=== PATIENT | male | born 1985 ===

== ENCOUNTER 2016-12-24 17:59 | Emergency (ER) | payer OTHER ==
[2016-12-24 18:11] VITALS: BP 118/76
--- NOTE | 2016-12-24 20:21 | ED HAND/WRIST INJURY COMPLAINT ---
History of Present Illness General Chief Complaint: Laceration Procedure Stated Complaint: FINGER LAC Source: patient Exam Limitations: no limitations Vital Signs & Intake/Output Vital Signs & Intake/Output Vital Signs Date Time Temp Pulse Resp B/P Pulse O2 O2 Flow FiO2 Ox Delivery Rate 12/24 2029 Room Air 12/24 1811 98.2 70 20 118/76 99 Allergies Coded Allergies: No Known Allergies (12/24/16) Triage Note: SEE NOTE UNKNOWN LAST TETANUS PER PT CUT FINGER AT WORK, CUT L THUMB ON SLICER. Triage Nurses Notes Reviewed? yes HPI: 31-year-old male with left thumb laceration at the distal phalanx ulnar aspect that occurred while at work. 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 Occurred prior to arrival, bleeding has been constant since. Mild sharp pain. He does not recall his last shot. No other injuries. (JARAD MANRIQUEZ) Past History Travel History Traveled to [place] past 21 day No Medical History Any Pertinent Medical History? none Neurological: NONE EENT: NONE Cardiovascular: NONE Respiratory: NONE Gastrointestinal: NONE Hepatic: NONE Renal: NONE Musculoskeletal: NONE Psychiatric: NONE Endocrine: NONE Tetanus Status: not up to date Surgical History Surgical History: non-contributory Psychosocial History What is your primary language Macedonian Tobacco Use: Current Daily Use Daily Tobacco Use Amount/Type: => 5 Cigarettes daily Family History Hx Contributory? No (JARAD MANRIQUEZ) Review of Systems Review of Systems Constitutional: Reports: see HPI. EENTM: Reports: no symptoms. Respiratory: Reports: no symptoms. Cardiovascular: Reports: no symptoms. GI: Reports: no symptoms. Genitourinary: Reports: no symptoms. Musculoskeletal: Reports: no symptoms. Skin: Reports: no symptoms. Neurological/Psychological: Reports: no symptoms. Hematologic/Endocrine: Reports: no symptoms. Immunologic/Allergic: Reports: no symptoms. All Other Systems: Reviewed and Negative (JARAD MANRIQUEZ) Physical Exam Physical Exam Hand Left: evidence of injury, 1st finger Hand Right: normal inspection Comments: Well-developed well-nourished no apparent distress. HEENT: Atraumatic, extraocular motion intact Neck: Supple, no lymphadenopathy Back: Nontender Respiratory: No respiratory distress Extremities: No edema, full range of motion Neuro: Alert and oriented x3 Psych: Mood affect normal, normal memory normal judgment. Skin: Warm and dry, no rash on exposed skin Left hand thumb distal phalanx ulnar aspect with a 1 cm laceration with mild active bleeding. Neurovascularly intact, capillary refill intact. Full range of motion. (JARAD MANRIQUEZ) Progress Differential Diagnosis: abscess, fracture, foreign body, tendon laceration Plan of Care: After verbal consent was obtained the laceration area was anesthetized with lidocaine 1 mL left thumb It was prepped and draped in a sterile fashion with Betadine. The wound was copiously irrigated with normal saline. The wound was inspected and no foreign bodies or tendon lacerations were noted on exam and there is no functional deficit. There is no arterial bleeding. 6 -0 nylon simple interrupted sutures were placed 3 Sutures in total. Bacitracin and sterile dressing was applied. Distally the neurovascular status was intact postprocedure. The patient tolerated the procedure well without complications. Infection and risk of foreign body or tendon laceration was discussed with patient. Follow-up instructions and wound care was discussed. Tetanus vaccine was given (JARAD MANRIQUEZ) Departure Departure Disposition: HOME OR SELF CARE Condition: Stable Clinical Impression Primary Impression: Finger laceration Qualifiers: Encounter type: initial encounter Qualified Code: S61.219A - Laceration without foreign body of unspecified finger without damage to nail, initial encounter Referrals: PATIENT HAS NO PRIMARY CARE DR (PCP/Family) Additional Instructions: Follow-up in 7-10 days either with your doctor or return to the emergency room for wound check and removal of sutures/farida Watch for signs of infection: Redness, swelling, pain, fever, discharge The possibility of a tendon laceration or foreign body exists. Please watch for signs of infection and return with any concerns Departure Forms: Customer Survey Employee Industrial Accident General Discharge Information (JARAD MANRIQUEZ) PA/TEST BORING CREW CHIEF Co-Sign Statement Statement: ED Attending supervision documentation- [] I saw and evaluated the patient. I have also reviewed all the pertinent lab results and diagnostic results. I agree with the findings and the plan of care as documented in the PA's/TEST BORING CREW CHIEF's documentation. x I have reviewed the ED Record and agree with the PA's/TEST BORING CREW CHIEF's documentation. [] Additions or exceptions (if any) to the PAs/TEST BORING CREW CHIEF's note and plan are summarized below: [] (ARIN SNOW,KIKO)
== END 2016-12-24 20:39 ==
LOC: ERH 17:59
DX: S61.012A Laceration without foreign body of left thumb without damage to nail, initial encounter (principal); W29.0XXA Contact with powered kitchen appliance, initial encounter
CPT/HCPCS: 90471; 90714

== ENCOUNTER 2017-01-01 13:08 | Emergency (ER) | payer OTHER ==
[2017-01-01 13:11] VITALS: BP 112/66
--- NOTE | 2017-01-01 13:23 | ED ANIMAL BITE/WOUND CHECK ---
History of Present Illness General Chief Complaint: Suture Removal/Wound Recheck Stated Complaint: SUTURE REMOVAL Source: patient, old records Exam Limitations: no limitations Vital Signs & Intake/Output Vital Signs & Intake/Output Vital Signs Date Time Temp Pulse Resp B/P Pulse O2 O2 Flow FiO2 Ox Delivery Rate 01/01 1311 99.2 87 20 112/66 96 Room Air Allergies Coded Allergies: No Known Allergies (12/24/16) Reconcile Medications No Known Home Medications Triage Note: SUTURE REMOVAL LEFT THUMB Triage Nurses Notes Reviewed? yes HPI: Left thumb sutures placed one week ago by myself. Presents for suture removal, he has no complaints. (JARAD MANRIQUEZ) Past History Travel History Traveled to [place] past 21 day No Medical History Any Pertinent Medical History? none Neurological: NONE EENT: NONE Cardiovascular: NONE Respiratory: NONE Gastrointestinal: NONE Hepatic: NONE Renal: NONE Musculoskeletal: NONE Psychiatric: NONE Endocrine: NONE Tetanus Vaccine: 12/24/16 Surgical History Surgical History: non-contributory Psychosocial History What is your primary language Ghanaian Tobacco Use: Current Daily Use Daily Tobacco Use Amount/Type: => 5 Cigarettes daily ETOH Use: occasional use Illicit Drug Use: denies illicit drug use Family History Hx Contributory? No (JARAD MANRIQUEZ) Review of Systems Review of Systems Constitutional: Reports: see HPI. EENTM: Reports: no symptoms. Respiratory: Reports: no symptoms. Cardiovascular: Reports: no symptoms. GI: Reports: no symptoms. Genitourinary: Reports: no symptoms. Musculoskeletal: Reports: see HPI. Skin: Reports: no symptoms. Neurological/Psychological: Reports: no symptoms. Hematologic/Endocrine: Reports: no symptoms. Immunologic/Allergic: Reports: no symptoms. All Other Systems: Reviewed and Negative (JARAD MANRIQUEZ) Physical Exam Physical Exam General Appearance: well developed/nourished Comments: Well-developed well-nourished no apparent distress. HEENT: Atraumatic, extraocular motion intact Neck: Supple, no lymphadenopathy Back: Nontender Respiratory: No respiratory distress Extremities: No edema, full range of motion Neuro: Alert and oriented x3 Psych: Mood affect normal, normal memory normal judgment. Skin: Warm and dry, no rash on exposed skin Left thumb, 3 sutures placed to the distal phalanx, incision is healed well, no signs of infection. Neurovascularly intact, range of motion full (JARAD MANRIQUEZ) Progress Differential Diagnosis: abscess, cellulitis, joint infection, tenosysnovitis Plan of Care: 3 sutures the left thumb removed by myself at the bedside without incident. Patient tolerated well without complications. (JARAD MANRIQUEZ) Departure Departure Disposition: HOME OR SELF CARE Condition: Stable Clinical Impression Primary Impression: Visit for suture removal Referrals: PATIENT HAS NO PRIMARY CARE DR (PCP/Family) Additional Instructions: return with any concerns of infection, redness swelling discharge or pain Departure Forms: Customer Survey General Discharge Information Prescriptions: Current Visit Scripts No Known Home Medications (JARAD MANRIQUEZ) PA/SPECIAL SERVICES DIRECTOR Co-Sign Statement Statement: ED Attending supervision documentation- [] I saw and evaluated the patient. I have also reviewed all the pertinent lab results and diagnostic results. I agree with the findings and the plan of care as documented in the PA's/SPECIAL SERVICES DIRECTOR's documentation. [X] I have reviewed the ED Record and agree with the PA's/SPECIAL SERVICES DIRECTOR's documentation. [] Additions or exceptions (if any) to the PAs/SPECIAL SERVICES DIRECTOR's note and plan are summarized below: [] (LARISSA RUDOLPH DO
== END 2017-01-01 13:36 ==
LOC: ERH 13:08
DX: S61.012A Laceration without foreign body of left thumb without damage to nail, initial encounter (principal); X58.XXXA Exposure to other specified factors, initial encounter; Y92.9 Unspecified place or not applicable; Y93.9 Activity, unspecified
CPT/HCPCS: 99281